=== PATIENT | female | born 1945 | race Two or more races ===

== ENCOUNTER → 2024-07-06 | Outpatient (CLI) | payer OTHER, MEDICAID, SELFPAY ==
--- NOTE | 2024-07-06 | XR_ITS ---
Examination: PA lateral chest 2 views TECHNIQUE: Upright PA lateral chest 2 views Exam date and time: June 2024 1335 hours INDICATIONS: Coughing beginning 8 days ago. FINDINGS: Early pneumonia right base Minor subsegmental atelectasis left base Accentuation basilar bronchovascular markings No significant cardiac enlargement IMPRESSION: Early pneumonia right base
== END | disposition home or self-care (01) ==
LOC: CDIM 13:04
PROVIDERS: PCP Family Medicine; Referring Provider Nurse Practitioner Family; Visit Provider Nurse Practitioner Family
DX: J18.9 Pneumonia, unspecified organism (principal)
CPT/HCPCS: 71046

== ENCOUNTER → 2024-07-19 | Outpatient (CLI) | payer OTHER, MEDICAID, SELFPAY ==
--- NOTE | 2024-07-19 09:48 | XR_ITS ---
Examination: PA lateral chest 2 views TECHNIQUE: Upright PA lateral chest 2 views Exam date and time: July 19, 2024 1112 hours Comparison July 06, 2024 INDICATIONS: Difficulty breathing this week, pneumonia right base on chest film July 06, 2024 FINDINGS: Right base pneumonia has cleared Minimal pneumonia right upper lobe abutting the minor fissure Mild prominence left ventricle On this study the right hilar region appears abnormally prominent Ectatic descending thoracic aorta Prominent osteopenia IMPRESSION: Right base pneumonia has cleared Minimal pneumonia right upper lobe On this study the right hilum appears abnormally prominent, recommend CT chest post intravenous contrast follow-up
== END | disposition home or self-care (01) ==
LOC: CDIM 09:39
PROVIDERS: PCP Nurse Practitioner Family; Referring Provider Nurse Practitioner Family; Visit Provider Nurse Practitioner Family
DX: J18.9 Pneumonia, unspecified organism (principal)
CPT/HCPCS: 71046

== ENCOUNTER 2024-08-05 15:55 | Emergency (ER) | payer OTHER, MEDICAID, SELFPAY ==
[2024-08-05 15:57] VITALS: BMI 29.2
[2024-08-05 16:51] VITALS: BP 124/83; PULSE 122; RESP 18; TEMP 36.8; O2SAT 95
--- NOTE | 2024-08-05 17:06 | PD.EDRECHK ---
ED Recheck Abnl Lab Rx-RME/HPI General Chief Complaint: Recheck/Abnormal Lab/Rx Stated Complaint: Per Provider: needs CT Time Seen by Provider: 08/05/24 16:33 Arrival date/time: 08/05/24 15:55 RME / HPI RME / HPI narrative: 79-year-old female patient was sent to us by PCP for evaluation requesting CT scan of the chest. Per patient family, patient is having pneumonia this been ongoing for several weeks, already finished antibiotic, follow-up today and was advised to return to emergency room due to persistent cough and abnormal finding on chest x-ray. Patient is currently not having any fever. Denies any chest pain or coughing. Denies any other complaints no medications taken prior to arrival. Related Data Home Medications ?Medication ?Instructions ?Recorded ?Confirmed diclofenac sodium 50 mg 50 mg PO BID 11/21/22 12/15/23 tablet,delayed release folic acid 1 mg-calc 200 mg-D3 50 1 tab PO DAILY 11/21/22 12/15/23 mcg-magnes 100 mg-acetylcyst tablet (Folite) lisinopril 2.5 mg tablet 2.5 mg PO DAILY 11/21/22 12/15/23 metformin 850 mg tablet 850 mg PO BID Diabetes 11/21/22 12/15/23 amiodarone 200 mg tablet 200 mg PO QDAY 02/10/23 12/15/23 apixaban 5 mg tablet (Eliquis) 5 mg PO BID 02/10/23 12/15/23 folic acid 1 mg-calc 200 mg-D3 50 1 tab PO DAILY 02/10/23 12/15/23 mcg-magnes 100 mg-acetylcyst tablet (Folite) metoprolol succinate 100 mg 100 mg PO QDAY 02/10/23 12/15/23 tablet,extended release 24 hr Previous Rx's ?Medication ?Instructions ?Recorded tramadol 50 mg tablet 50 mg PO TID PRN pain #14 tabs 02/11/23 Allergies Allergy/AdvReac Type Severity Reaction Status Date / Time No Known Allergies Allergy Verified 12/15/23 09:54 Review of Systems Review of Systems Narrative Review of Systems: Review of system reviewed and within normal limits except mentioned in HPI ED Exam Narrative Physical exam: VITAL SIGNS: Reviewed. GENERAL APPEARANCE: Alert and interactive, follows commands, no acute distress, HEAD AND FACE: Non-traumatic. ENT: PERRL, pink conjunctivitis, eyelid no trauma, Mucous membrane moist. NECK: Supple, nontender, no nuchal rigidity. CHEST: No tenderness, no crepitus, no paradoxical movement, no retractions. LUNGS: Clear, well ventilated, symmetric, no rales, no wheezing, no ronchi, no stridor, good breath sounds bilaterally. HEART: Regular rate, regular rhythm, no murmur, no gallops. ABDOMEN: Soft, positive bowel sounds, nondistended, no guarding, nontender, no rebound, no masses, RECTAL: Deferred. GENITAL: Deferred. NEUROLOGICAL: Gross motor function intact sensory function intact, Appropriate for age. MUSCULOSKELETAL: low back nontender, full range of motion. EXTREMITIES: Nontender, full range of motion. SKIN: Color pink, dry, no rash, no lacerations, no abrasions, no contusions. LYMPHATICS: Deferred. Course Vital Signs Vital signs: Vital Signs Temperature 98.3 F 08/05/24 16:51 Pulse Rate 122 H 08/05/24 16:51 Respiratory Rate 18 08/05/24 16:51 Blood Pressure 124/83 08/05/24 16:51 Pulse Oximetry (%) 95 08/05/24 16:51 Oxygen Delivery Method Room Air 08/05/24 16:51 Recheck / Abnormal Lab / Rx MDM Narrative MDM Narrative:: 79-year-old female patient was sent to us by PCP for evaluation requesting CT scan of the chest. Per patient family, patient is having pneumonia this been ongoing for several weeks, already finished antibiotic, follow-up today and was advised to return to emergency room due to persistent cough and abnormal finding on chest x-ray. Patient is currently not having any fever. Denies any chest pain or coughing. Denies any other complaints no medications taken prior to arrival. Discharge Plan Prescriptions/Referrals Prescriptions/Med Rec: No Action metformin 850 mg tablet 850 mg PO BID Patient Comments: TAKE ONE TABLET BY MOUTH TWICE DAILY Folite [id number] [id number]-qs-[id number]-mg tablet 1 tab PO DAILY diclofenac sodium 50 mg tablet,delayed release (DR/EC) 50 mg PO BID Patient Comments: TAKE ONE TABLET BY MOUTH TWICE DAILY lisinopril 2.5 mg tablet 2.5 mg PO DAILY Patient Comments: TAKE ONE TABLET BY MOUTH EVERY DAY amiodarone 200 mg Tablet 200 mg PO QDAY metoprolol succinate 100 mg Tablet Extended Release 24 Hr 100 mg PO QDAY Eliquis 5 mg Tablet 5 mg PO BID Folite [id number] zo-lj-[id number]-mg Tablet 1 tab PO DAILY tramadol 50 mg tablet 50 mg PO TID PRN (Reason: pain) Qty: 14 0RF Patient/Caregiver Discharge Instructions Print Language: [place]
--- NOTE | 2024-08-05 17:08 | EKG_ITS ---
[facility] Test Date: 2024-08-05 Pat Name: ANDREW THAPA Department: Room: - Gender: Female Dietetic Technician: : 1945 Requested By: Ofe Amanda Order Number: [id number] Reading MD: Ofe Amanda Measurements Intervals [place] Rate: 118 P: SC: QRS: -17 QRSD: 87 T: 34 QT: 329 QTc: 462 Interpretive Statements ATRIAL FIBRILLATION WITH RAPID VENTRICULAR RESPONSE POSSIBLE ANTERIOR MYOCARDIAL INFARCTION , PROBABLY OLD [30 ms Q WAVE IN V3/V4, OR R < 0.2 mV IN V4] ABNORMAL RHYTHM ECG Compared to ECG 11/25/2022 08:30:14 No significant changes /store/S0/[id number]/[id number].pdf
--- NOTE | 2024-08-05 17:08 | XR_ITS ---
Examination: CT chest with intravenous contrast 2-D sagittal and coronal reconstructions Exam date and time: August 05, 2024 10 0 3:00 PM Indications: Onset chest pain coughing today CTDI:vol (mGy) 10.6 DLP: (mGycm) 348 Technique: Multiple axial sections of the thorax have been obtained. Sections have been obtained, 3 mm slice thickness. Mediastinal and lung density settings have been obtained. Intravenous contrast administered, 60 cc Isovue-370. 2-D sagittal, coronal images obtained. Low dose protocols were performed. One or more of the following dose reduction techniques were used; automated exposure control, adjustment of the mA and/or KV according to patient size, use of iterative reconstruction technique. Findings: 6 mm, 20 right thyroid nodules with enlarged right substernal thyroid lobe No thoracic aortic aneurysm dilatation No pulmonary artery emboli. Mild enlargement cardiac contour No pneumonia or pulmonary edema or pleural disease Retrocardiac gastric hernia No focal liver or splenic lesion Partial visualization significant left hydronephrosis 9 mm right renal calculus Cholelithiasis Impression: Enlarged right thyroid lobe extending substernal with right thyroid nodules No pneumonia pulmonary edema or pleural disease 9 mm right renal calculus Cholelithiasis Partial visualization significant left hydronephrosis
[2024-08-05 17:29] LABS: Basophils % (Auto) 1 % (0-2.5); Eosinophils # (Auto) 0.2 Thou/mm3 (0.0-0.5); Eosinophils % (Auto) 3 % (0-10); Hematocrit 42.7 % (36.0-46.0); Hemoglobin 14.4 g/dL (12.0-16.0); Immature Granulocytes % (Auto) 1 % (0-0); Immature Granulocytes Auto 0.05 Thou/mm3 (0.00-0.00); Lymphocytes # (Auto) 2.6 Thou/mm3 (1.0-4.8); Lymphocytes % (Auto) 32 % (10-50); Mean Corpuscular HGB Conc 33.7 g/dl (31.0-37.0); Mean Corpuscular Hemoglobin 31.8 pg (25.0-35.0); Mean Corpuscular Volume 94 fL (80-100); Monocytes # (Auto) 0.8 Thou/mm3 (0.0-0.8); Monocytes % (Auto) 10 % (0-12); Neutrophils # (Auto) 4.4 Thou/mm3 (1.8-7.7); Neutrophils % (Auto) 54 % (37-80); Nucleated Red Blood Cell % 0 /100 WBC (0); Platelet Count 241 Thou/mm3 (140-440); RDW Standard Deviation 47.1 fL (36.4-46.3); Red Blood Count 4.53 Miln/mm3 (4.00-5.20); White Blood Count 8.1 Thou/mm3 (3.6-11.0)
[2024-08-05 17:45] LABS: B-Type Natriuretic Peptide 110 pg/mL (0-100)
[2024-08-05 17:59] LABS: Alanine Aminotransferase 7 U/L (10-49); Albumin, Serum 4.1 gm/dL (3.4-4.8); Albumin/Globulin Ratio 1.3 (1.2-2.2); Alkaline Phosphatase 75 U/L (46-116); Anion Gap 9 (7-16); Aspartate Amino Transferase 13 U/L (0-34); BUN/Creatinine Ratio 18 Ratio (12-20); Blood Urea Nitrogen 21 mg/dL (9-23); Calcium 10.8 mg/dL (8.3-10.6); Calcium (Corrected) 10.8 mg/dL (8.5-10.1); Carbon Dioxide 27.8 mMol/L (20.0-31.0); Chloride 102 mMol/L (98-107); Creatinine (Component) 1.2 mg/dL (0.6-1.3); Estimated Creatinine Clearance 35.5 mL/min (>60); Globulin 3.1 gm/dL (2.3-3.5); Glucose 101 mg/dL (74-106); Osmolality,Calculated 280 (275-295); Potassium 3.7 mMol/L (3.4-5.1); Sodium 139 mMol/L (136-145); Total Protein 7.2 gm/dL (5.7-8.2); eGFR 46 See Note
[2024-08-05 19:18] LABS: Collection Type, Urine Clean Catch
[2024-08-05 19:38] LABS: Bilirubin,Urine Negative (Negative); Blood,Urine 3+ (Negative); Clarity,Urine Turbid (Clear/Hazy); Color,Urine Yellow (Lt Yel-Yel); Glucose, Urine Negative (Negative); Hyaline Casts,Urine < 1 /hpf (0-1); Ketones,Urine Negative (Negative); Leukocyte Esterase,Urine Positive (Negative); Nitrite,Urine Negative (Negative); PH,Urine 6.5 (5.0-7.0); Protein,Urine 1+ (Neg - Trace); RBC,Urine 743 /hpf (0-3); Specific Gravity,Urine 1.019 (1.001-1.035); Squamous Epithelial Cell,Urine < 1 /hpf (0-5); Urobilinogen,Urine Negative mg/dL (0.0-1.0); WBC,Urine 51 /hpf (0-5)
[2024-08-05 19:40] LABS: Culture Indicated,Urine Yes
--- NOTE | 2024-08-05 23:17 | PD.EDRME ---
Rapid Medical Screening Exam E Arrival date/time: 08/05/24 15:55 79-year-old female patient was sent to us by PCP for evaluation requesting CT scan of the chest. Per patient family, patient is having pneumonia this been ongoing for several weeks, already finished antibiotic, follow-up today and was advised to return to emergency room due to persistent cough and abnormal finding on chest x-ray. Patient is currently not having any fever. Denies any chest pain or coughing. Denies any other complaints no medications taken prior to arrival. Chief Complaint: Recheck/Abnormal Lab/Rx Time Seen by Provider: 08/05/24 16:33 Vital signs: Vital Signs Temperature 98.3 F 08/05/24 16:51 Pulse Rate 122 H 08/05/24 16:51 Respiratory Rate 18 08/05/24 16:51 Blood Pressure 124/83 08/05/24 16:51 Pulse Oximetry (%) 95 08/05/24 16:51 Oxygen Delivery Method Room Air 08/05/24 16:51 E Narrative: 79-year-old female patient was sent to us by PCP for evaluation requesting CT scan of the chest. Per patient family, patient is having pneumonia this been ongoing for several weeks, already finished antibiotic, follow-up today and was advised to return to emergency room due to persistent cough and abnormal finding on chest x-ray. Patient is currently not having any fever. Denies any chest pain or coughing. Denies any other complaints no medications taken prior to arrival.
--- NOTE | 2024-08-05 23:31 | PD.EDRECHK ---
ED Recheck Abnl Lab Rx-RME/HPI General Chief Complaint: Recheck/Abnormal Lab/Rx Stated Complaint: Per Provider: needs CT Time Seen by Provider: 08/05/24 16:33 Arrival date/time: 08/05/24 15:55 RME / HPI RME / HPI narrative: 79-year-old female patient was sent to us by PCP for evaluation requesting CT scan of the chest. Per patient family, patient is having pneumonia this been ongoing for several weeks, already finished antibiotic, follow-up today and was advised to return to emergency room due to persistent cough and abnormal finding on chest x-ray. Patient is currently not having any fever. Denies any chest pain or coughing. Denies any other complaints no medications taken prior to arrival. Related Data Home Medications ?Medication ?Instructions ?Recorded ?Confirmed diclofenac sodium 50 mg 50 mg PO BID 11/21/22 12/15/23 tablet,delayed release folic acid 1 mg-calc 200 mg-D3 50 1 tab PO DAILY 11/21/22 12/15/23 mcg-magnes 100 mg-acetylcyst tablet (Folite) lisinopril 2.5 mg tablet 2.5 mg PO DAILY 11/21/22 12/15/23 metformin 850 mg tablet 850 mg PO BID Diabetes 11/21/22 12/15/23 amiodarone 200 mg tablet 200 mg PO QDAY 02/10/23 12/15/23 apixaban 5 mg tablet (Eliquis) 5 mg PO BID 02/10/23 12/15/23 folic acid 1 mg-calc 200 mg-D3 50 1 tab PO DAILY 02/10/23 12/15/23 mcg-magnes 100 mg-acetylcyst tablet (Folite) metoprolol succinate 100 mg 100 mg PO QDAY 02/10/23 12/15/23 tablet,extended release 24 hr Previous Rx's ?Medication ?Instructions ?Recorded tramadol 50 mg tablet 50 mg PO TID PRN pain #14 tabs 02/11/23 cefuroxime axetil 500 mg tablet 500 mg PO BID #14 tabs 08/05/24 Allergies Allergy/AdvReac Type Severity Reaction Status Date / Time No Known Allergies Allergy Verified 12/15/23 09:54 Review of Systems Review of Systems Narrative Review of Systems: Review of system reviewed and within normal limits except mentioned in HPI ED Exam Narrative Physical exam: VITAL SIGNS: Reviewed. GENERAL APPEARANCE: Alert and interactive, follows commands, no acute distress, HEAD AND FACE: Non-traumatic. ENT: PERRL, pink conjunctivitis, eyelid no trauma, Mucous membrane moist. NECK: Supple, nontender, no nuchal rigidity. CHEST: No tenderness, no crepitus, no paradoxical movement, no retractions. LUNGS: Clear, well ventilated, symmetric, no rales, no wheezing, no ronchi, no stridor, good breath sounds bilaterally. HEART: Regular rate, regular rhythm, no murmur, no gallops. ABDOMEN: Soft, positive bowel sounds, nondistended, no guarding, nontender, no rebound, no masses, RECTAL: Deferred. GENITAL: Deferred. NEUROLOGICAL: Gross motor function intact sensory function intact, Appropriate for age. MUSCULOSKELETAL: low back nontender, full range of motion. EXTREMITIES: Nontender, full range of motion. SKIN: Color pink, dry, no rash, no lacerations, no abrasions, no contusions. LYMPHATICS: Deferred. Course Quality Measures none Orders Category Date Time Status CT Screening NOW Care 08/05/24 17:09 Active EKG (ED ONLY) *Do not use* NOW Care 08/05/24 17:[address] chest w con Stat Exams 08/05/24 17:08 Completed EKG (ED Only) Stat Exams 08/05/24 17:08 Draft B-Type Natriuretic Peptide Stat Lab 08/05/24 17:20 Completed CBC Stat Lab 08/05/24 17:20 Completed Comprehensive Metabolic Panel Stat Lab 08/05/24 17:20 Completed Partial Thromboplastin Time Stat Lab 08/05/24 17:20 Completed Urinalysis, C/S if Indicated Stat Lab 08/05/24 19:05 Completed Urine Culture Stat Lab 08/05/24 19:05 Received cefTRIAXone [Rocephin] 1,000 mg Med 08/05/24 23:32 Discontinued Lidocaine 1% 20 ml [Xylocaine 1% 20 ML] 2.1 ml IM X1 Vital Signs Vital signs: Vital Signs Temperature 98.3 F 08/05/24 16:51 Pulse Rate 122 H 08/05/24 16:51 Respiratory Rate 18 08/05/24 16:51 Blood Pressure 124/83 08/05/24 16:51 Pulse Oximetry (%) 95 08/05/24 16:51 Oxygen Delivery Method Room Air 08/05/24 16:51 Recheck / Abnormal Lab / Rx [facility] Narrative [facility] Narrative:: 79-year-old female patient was sent to us by PCP for evaluation requesting CT scan of the chest. Per patient family, patient is having pneumonia this been ongoing for several weeks, already finished antibiotic, follow-up today and was advised to return to emergency room due to persistent cough and abnormal finding on chest x-ray. Patient is currently not having any fever. Denies any chest pain or coughing. Denies any other complaints no medications taken prior to arrival. Laboratory workup was significant for UTI. The rest of the labs unremarkable. CT scan of the abdomen and pelvis showed Enlarged right thyroid lobe extending substernal with right thyroid nodules No pneumonia pulmonary edema or pleural disease 9 mm right renal calculus Cholelithiasis Partial visualization significant left hydronephrosis EKG showed A-fib, ventricular rate of 118 bpm, no ST segment elevation depression noted. Patient previous EKG also showed A-fib. Results discussed with the patient. Patient received IM ceftriaxone. Patient data External records reviewed:: None Clinical information provided by:: patient Social determinants that could affect healthcare access:: none Patient has the following chronic illnesses:: Chronic A-fib hypertension How is presenting disease/condition affected by chronic disease/condition?: exacerbated by Evaluation data The following diagnostics were reviewed and interpreted by me:: lab results and radiology exam(s) Lab and/or radiology exams considered but not ordered:: Plan Interpretation Summary: See results in MDM Medications / Prescriptions Medications or Prescriptions considered but not ordered:: None Medication administrations:: Medication Administration History Discontinued Medications Ceftriaxone Sodium 1,000 mg/ (Lidocaine HCl 2.1 ml) 0 mg IM X1 ONE Stop: 08/05/24 23:33 Ceftriaxone IM Consultations Consultation(s) initiated? (list below): No Diagnosis Recheck Differential Diagnosis: other (Shortness of breath, UTI, thyroid nodule, gallstone,) Most likely diagnosis given after review of the tests above:: UTI, gallstone, kidney stone, thyroid nodule Admission Indicated Admission indicated?: not indicated Explain why admission is indicated or not indicated:: Stable Admission Request Was there a request for admission?: No Disposition Plan Disposition Plan: Discharge Discharge Attestation Discharge Attestation: The patient and all family members were given an opportunity to ask questions and understood the discharge instructions. Discharge instructions specifically effects, indications for sooner follow up or return to the emergency department, and the expected course of current diagnosis. Patient condition: Stable Discharge Plan Plan Patient Disposition: HOME (Self Care) Disposition Comment: Stable Prescriptions/Referrals Prescriptions/Med Rec: New cefuroxime axetil 500 mg tablet 500 mg PO BID Qty: 14 0RF No Action metformin 850 mg tablet 850 mg PO BID Patient Comments: TAKE ONE TABLET BY MOUTH TWICE DAILY Folite [id number] hv-[id number]-mg tablet 1 tab PO DAILY diclofenac sodium 50 mg tablet,delayed release (DR/EC) 50 mg PO BID Patient Comments: TAKE ONE TABLET BY MOUTH TWICE DAILY lisinopril 2.5 mg tablet 2.5 mg PO DAILY Patient Comments: TAKE ONE TABLET BY MOUTH EVERY DAY amiodarone 200 mg Tablet 200 mg PO QDAY metoprolol succinate 100 mg Tablet Extended Release 24 Hr 100 mg PO QDAY Eliquis 5 mg Tablet 5 mg PO BID Folite [id number]-mg Tablet 1 tab PO DAILY tramadol 50 mg tablet 50 mg PO TID PRN (Reason: pain) Qty: 14 0RF Referrals: Jaja Medina, [employer] [Primary Care Provider] - In 1 week Problem List Clinical Impression: UTI (urinary tract infection), Thyroid nodule, Cholelithiasis, Nephrolithiasis Patient/Caregiver Discharge Instructions Discharge Activity: activity as tolerated Education Materials: Understanding Urinary Tract ... Additional Instructions: Thank you for the opportunity for serving you today. You are stable for discharged . You are advised to: Follow-up with your PCP in 1 to 2 days and as per referral to general surgery regarding your gallstone, ENT regarding your thyroid nodule, and neurologist regarding your kidney stones Return to ED for worsening of symptoms Increase oral fluids Take medication as prescribed Print Language: Guatemalan Stand Alone Forms: [facility] Award Info., Patient Portal Info Letter PA/REPORTING SPECIALIST Supervising Physician PA/REPORTING SPECIALIST Supervising Physician: MD Harlan
[2024-08-05] MEDS: cefTRIAXone 1,000 MG, LIDOCAINE 1% 20 ML 2.1 ML IM (23:55)
== END 2024-08-06 00:07 | disposition home or self-care (01) ==
PROVIDERS: Nurse Practitioner Family; Emergency Provider Emergency Medicine; PCP Nurse Practitioner Family
DX: N13.6 Pyonephrosis (principal); K80.20 Calculus of gallbladder without cholecystitis without obstruction; E04.2 Nontoxic multinodular goiter; I48.20 Chronic atrial fibrillation, unspecified; I10 Essential (primary) hypertension; Z87.01 Personal history of pneumonia (recurrent)
CPT/HCPCS: 36415; 71260; 80053; 81001; 83880; 85025; 85730; 87077; 87086; 87186; 93005; 96372; 99284; A4649; J0696; J3490; Q9967

== ENCOUNTER → 2024-08-05 | Outpatient (CLI) | payer OTHER, MEDICAID, SELFPAY ==
--- NOTE | 2024-08-05 14:10 | XR_ITS ---
Examination: Bone densitometry Date and time of exam:August 05, 2024 1444 hours INDICATIONS: Menopause age 50, diabetic, personal history osteoporosis Technique: Lumbar spine and hip total bone mineralization values of an calculated. Peak reference and age match control results have been displayed. Findings: Lumbar spine total bone mineralization is0.851 gm/cm2. This is 1.8 standard deviations below peak reference. This is 0.9 standard deviations above age-matched controls. Hip total bone mineralization is 0.657 gm/cm2 This is 2.3 standard deviations below peak reference. This is 0.3 standard deviations below age-matched controls Impression: There is osteopenia based on lumbar spine measurements. There is osteoporosis based on hip measurements Lumbar mineralization is increase 22.4% compared with January 05, 2008 Hip mineralization is decreased 25.5% compared with January 05, 2008
== END | disposition home or self-care (01) ==
PROVIDERS: Referring Provider Nurse Practitioner Family; Visit Provider Nurse Practitioner Family
DX: M85.88 Other specified disorders of bone density and structure, other site (principal); M81.0 Age-related osteoporosis without current pathological fracture
CPT/HCPCS: 77080